=== PATIENT | female | born 1960 | race Caucasian/White ===

== ENCOUNTER 2025-02-19 08:49 | Emergency (ER) | payer OTHER ==
[2025-02-19 10:07] VITALS: BP 151/86; PULSE 85
== END 2025-02-19 10:05 | disposition home or self-care (01) ==
LOC: LB.ED 08:49
DX: H01.004 Unspecified blepharitis left upper eyelid (principal); E78.00 Pure hypercholesterolemia, unspecified; Z79.899 Other long term (current) drug therapy
CPT/HCPCS: 99283